=== PATIENT | female | born 2000 | race Two or more races ===

== ENCOUNTER → 2024-04-05 | Outpatient (CLI) | payer BC ==
--- NOTE | 2024-04-05 18:55 | CT ---
EXAMINATION TYPE: CT abdomen pelvis w con CT DLP: 454.8 mGycm, Automated exposure control for dose reduction was used. DATE OF EXAM: 04/05/2024 6:46 PM COMPARISON: None. CLINICAL INDICATION: Female, 24 years old with history of R93.3 ABNORMAL FINDINGS ON DX IMAGING OF AK T DIGES; abd pain/abnormal US TECHNIQUE: Axial CT abdomen pelvis w con;Sagittal and coronal reformats were created on a separate w orkstation. Contrast used:100 mL of Isovue 300 with IV Contrast, (none if empty) Oral contrast used: with Oral Contrast (none if empty) FINDINGS: LOWER CHEST: Unremarkable ABDOMEN LIVER: Unremarkable GALLBLADDER AND BILE DUCTS: Unremarkable. PANCREAS: Unremarkable. SPLEEN: Unremarkable. ADRENAL GLANDS: Unremarkable. KIDNEYS AND URETERS: No evidence of hydronephrosis or renal calculus. The ureters are unremarkable. PELVIS BLADDER: Unremarkable REPRODUCTIVE: Unremarkable. ABDOMEN & PELVIS STOMACH AND BOWEL: No evidence of bowel obstruction. Oral contrast extends throughout the colon to th e rectum. The appendix is normal. PERITONEUM/RETROPERITONEUM: No evidence of pneumoperitoneum or free fluid. VASCULATURE: No evidence of aortic aneurysm. MUSCULOSKELETAL: No acute osseous abnormalities LYMPH NODES: No gross evidence for lymphadenopathy. SOFT TISSUE/ABDOMINAL WALL: Unremarkable IMPRESSION: No evidence for acute process. The appendix is normal. No obstructive uropathy or renal calculus. No priors available for comparison.
== END | disposition home or self-care (01) ==
LOC: RADCTMAIN 16:53
PROVIDERS: ATTEND Family Medicine
DX: R93.3 Abnormal findings on diagnostic imaging of other parts of digestive tract (principal)
CPT/HCPCS: 74177; Q9967